=== PATIENT | female | born 1955 | race Caucasian/White ===

== ENCOUNTER → 2017-11-02 | Outpatient (CLI) | payer OTHER ==
[~2017-11-02] MED LIST: DILAUDID 2MG TAB2 MG PO; DILAUDID 4MG TAB4 MG PO; MICARDIS40 MG PO; MIRALAX PA17 GM/Dose PO; NORCO 325 MG-51 TAB PO; PROZAC 20MG20 MG PO; PROZAC40 MG PO; VALTREX1 GM PO; VITAMIN D32000 IU PO; ZOFRAN ODT8 MG PO
== END ==
LOC: BHSO 10:56
DX: F33.1 Major depressive disorder, recurrent, moderate (principal)
CPT/HCPCS: G0463